=== PATIENT | male | born 2000 | race Caucasian/White ===

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

== ENCOUNTER 2020-07-23 12:30 | Emergency (ER) | payer SELFPAY ==
[2020-07-23 12:31] VITALS: BP 127/73; PULSE 71; RESP 16; TEMP 36.2; O2SAT 99; BMI 22.1
--- NOTE | 2020-07-23 13:44 | ED.DCSUM_ITS ---
History of Present Illness Chief Complaint: Laceration Informant: Patient Onset: Today, Hours Mechanism/Context: Blunt Injury Quality of Pain: Dull, Aching Location: Upper lip left side Current Severity: Mild Maximum Severity: Moderate Worsened by: Initial injury Relieved by: Nothing Associated Symptoms: Negative for: Parasthesias, Weakness, Loss of consciousness, Amnesia Narrative: Patient is a 19-year-old male who sustained blunt trauma to his face. He has a laceration to the upper lip on the left side that goes to the vermilion border. He states his upper tooth is pushed back. He is pointing to tooth #10. He states his teeth do not feel malaligned. He denies any dental pain. He did not notice any of his teeth being chipped tetanus is up-to-date. He denies ocular, visual auditory symptoms. He denies neck pain. Tetanus Immunization: <5 years Prior similar symptoms: No Recent Illness/Hospitalization: No - Past Medical History (1) No significant past medical history Status: Acute Past Medical History - Allergies and Home Meds Allergies/Adverse Reactions: Allergies amoxicillin Allergy (Verified 07/23/20 12:32) Unknown Primary Care Physician: Care Physician,No Primary [Primary Care Provider] - Prior records reviewed: Yes Surgical History: - - Implantation of amputated finger Lives: Alone Smoking Status: Current every day smoker Alcohol: Rare Drugs: None Review of Systems Gastrointestinal: Denies: Nausea, Vomiting Skin: Reports: Wounds. Denies: Rash Neurological: Denies: Weakness, Parasthesia, Numbness Hematologic: Denies: Easy bruising, Easy bleeding Physical Exam Vital Signs/Narrative: Vital Signs Temp Pulse Resp BP Pulse Ox 07/23/20 12:31 97.2 F L 71 16 127/73 H 99 Inital Vital Signs reviewed: Yes General: Well nourished, Well developed Head: Normocephalic, Trauma - Duration upper lip through the million border with injury to tooth #10 Eyes: Perrl, EOMI. Negative for: Pale conjunctiva ENT: TM's clear, No hemotympanum or drainage, - - Tooth #10 is loose. Patient was informed to follow-up with dentist for x-ray to evaluate for root fracture.. Negative for: No trauma, Hemotympanum, Otorrhea, Nasal trauma, Nasal septal hematoma Neck: Nontender, Full ROM. Negative for: Spinal Tenderness, Paraspinal Tenderness Cardiovascular: Negative for: Regular rate, Regular rhythm, No murmurs, Normal S1 Respiratory: Negative for: No distress Skin: Normal color, No rash, Trauma Neurological: Alert, Oriented x3, Cranial nerves II-XII grossly intact, Normal Strength, Normal Sensation Procedures - Lacerations No standard instances Length: 0.51 in Depth: Vermilion border and vermilion upper lip Shape: Linear Prep: Sterile Conditions Laceration Repair: - - Infraorbital nerve block intraoral approach Irrigated (ml): 25 Number of Sutures/[place]: 5 Suture Information: Ethilon, Simple, 6-0 ED Disposition - Plan for ED Patient: Disposition: Home or Assisted Living Diagnosis: Laceration of vermilion border of upper lip, Dental trauma Instructions: ED Laceration, Face: Stitches or Tape, ED Dental Trauma Referrals: Care Physician,No Primary [Primary Care Provider] - Corrie Murcia [NON-STAFF] - 5 Days for suture removal Additional Instructions: [facility] to have x-ray to rule out a rib fracture involving tooth #10.
[2020-07-23] MEDS: Lidocaine 1% (20 ml mdv) 20 ML Vial INFILT (13:49)
[2020-07-23 14:33] VITALS: RESP 16; RESP 17
== END 2020-07-23 14:34 | disposition home or self-care (01) ==
PROVIDERS: Emergency Provider Emergency Medicine
DX: S01.511A Laceration without foreign body of lip, initial encounter (principal); F17.200 Nicotine dependence, unspecified, uncomplicated; X58.XXXA Exposure to other specified factors, initial encounter
CPT/HCPCS: 12011; 99283

== ENCOUNTER 2021-07-26 21:59 | Emergency (ER) | payer SELFPAY ==
[2021-07-26 22:00] VITALS: BP 143/73; PULSE 92; RESP 18; TEMP 37.3; O2SAT 98; BMI 22.3
[2021-07-26 22:09] VITALS: BP 143/73; PULSE 92; RESP 18; TEMP 37.3; O2SAT 98
--- NOTE | 2021-07-26 22:12 | ED.RN ---
PT states he hasn't used marijuana in a while, at least 4 hrs.
--- NOTE | 2021-07-26 22:23 | EKG12_ITS ---
Test Reason : DYSRYTHMIA Blood Pressure : / mmHG Vent. Rate : 080 BPM Atrial Rate : 080 BPM P-R Int : 134 ms QRS Dur : 090 ms QT Int : 350 ms P-R-T Axes : 026 047 061 degrees QTc Int : 403 ms Normal sinus rhythm Nonspecific T wave abnormality Abnormal ECG Confirmed by MINH CHAO, SHAUNA ([id number]), sports editor RELL RAYMOND ([id number]) on 07/27/2021 11:34:59 AM Referred By: DOC Confirmed By:SHAUNA WILKINSON MD
--- NOTE | 2021-07-26 22:23 | EX.ED.DYSGE1 ---
HPI History of Present Illness Chief Complaint: Asthma Informant: patient and spouse/S.O. Narrative Narrative: Patient presents with episodes of dyspnea and chest tightness. He states between these episodes he feels fine. He has been going on for couple weeks. Nothing specifically brings them on or gets them better. He states he gets very anxious and feels like he has a panic attack with these. He does have a history of anxiety but is not on medication until he saw urgent care just a few days ago for this. He was then started on hydroxyzine. He was also given an albuterol inhaler because he was out and does have a history of asthma. However, he is not having wheezing or coughing. Patient does report having an accident to electric shock while working on a washer and dryer about a month ago. However, the symptoms started maybe 2 weeks later. At this time he feels fine. He had 1 of these episodes tonight and felt very panicked. His girlfriend called to bring him in. [facility] Medical History Amputation finger-complicated Anxiety Asthma Electrocution Marijuana smoker Home Medications albuterol sulfate 1 INHALATION Q4H PRN PRN 07/26/21 [History Last Taken Unknown] albuterol sulfate 2 puff INHALATION Q4H PRN PRN 07/26/21 [History Last Taken Unknown] hydroxyzine HCl 25 - 50 mg PO Q6H PRN PRN 07/26/21 [History Last Taken Unknown] Allergy/AdvReac Type Severity Reaction Status Date / Time amoxicillin Allergy Unknown Verified 07/23/20 12:32 Surgical History History of appendectomy Social History Smoking Status: Current every day smoker tobacco type: cigarettes ROS ROS ED Constitutional Constitutional ED: Denies chills or fever(s) Eyes Eyes: Denies blurry vision ENT ENT ED: Denies rhinorrhea Cardiovascular Cardiovascular: Reports chest pain, palpitations and racing heartbeat Respiratory/Chest Respiratory/Chest: Reports dyspnea; Denies cough or sputum Gastrointestinal Gastrointestinal: Denies nausea or vomiting Musculoskeletal Musculoskeletal: Denies myalgias Integumentary Denies rash Neurologic Neurologic: Denies headache(s), paresthesias or weakness Psychiatric Psychiatric: Reports anxiety; Denies depression Endocrine Endocrinology: Denies polydipsia or polyuria Allergic/Immunologic Allergic/Immunologic ED: Denies mouth swelling or urticaria EXAM Physical Exam Const Vital Signs: 07/26/21 22:00 07/26/21 22:09 07/26/21 23:17 Temperature 99.2 F H 99.2 F H 99.2 F H Temperature Source Temporal Temporal Temporal Pulse Rate 92 92 92 Respiratory Rate 18 18 18 Respiratory Effort Normal Blood Pressure 143/73 H 143/73 H 143/73 H Blood Pressure Mean 96 96 96 Pulse Ox 98 98 98 Oxygen Delivery Method Room Air Room Air Room Air Positive well nourished and well developed General Appearance ED: well developed and NAD; Negative for cyanotic or diaphoretic HEENT Reports dry mucous membranes Mouth ED: Yes dry mucous membranes Mouth: dry mucous membranes Eyes PERRL and EOMs intact bilaterally Neck no JVD Chest Wall inspection of chest normal and palpation of chest normal Resp normal respiratory effort and clear to auscultation bilaterally Effort and Inspection: Negative for pain with movement Auscultation: Negative for rales, rhonchi or wheezes Cardio regular rate and regular rhythm Rate: other Other Details: Monitor does show a prominent sinus arrhythmia. However, there is no other ectopy or abnormality seen on the monitor. GI normal to inspection, nondistended, normoactive bowel sounds and non-tender Palpation: soft Back/Spine no CVA tenderness Extremity normal to inspection General Extremety ED: Negative for edema or tenderness General Extremity: Negative for edema Neuro oriented x3 Sensorium / Orientation: alert Psych mental status grossly normal Attitude: No agitated Mood & Affect: Negative for anxious Skin no rashes or lesions noted MDM MDM MDM Narrative Medical decision making narrative: 2 view chest x-ray looked at by me shows no sign of pneumothorax, abnormal cardiac silhouette, infiltrate. EKG shows no acute process. Patient's recheck. He still asymptomatic. More information was brought out. Evidently does smoke a fair amount of marijuana. He has more of these episodes after smoking than before. I explained that he may have something put in that that he is not familiar with that is exacerbating his anxiety. Also, when he gets anxious he has been using his albuterol inhaler a lot. That is why he ran out. I explained that albuterol is very good for bronchospasm but it can induce worsening anxiety in people. We discussed options for controlling this. He has follow-up appointments with physician already. They are not sure the exact name but it is the appointments are in early August. I think he is safe for discharge at this time. EKG Initial EKG: Comments: EKG done for transient chest tightness and occasional dyspnea. EKG shows sinus rhythm with slight sinus arrhythmia. Nonspecific ST-T wave changes but no sign of ST elevation or depression. No ectopy. NC interval, QRS duration and QTc are normal. Discharge Plan Triage Chief Complaint: Asthma ED Provider: Teo Martinez Dx/Rx/DC Orders Clinical Impression: Chest tightness, Panic attacks Instructions: ED Pain, Acute, Uncertain Cause, ED Panic Attack Prescriptions: No Action albuterol sulfate 2.5 mg /3 mL (0.083 %) solution for nebulization 1 inhalation Q4H PRN PRN (Reason: Wheezing) RF: 0 hydroxyzine HCl 25 mg tablet 25 - 50 mg PO Q6H PRN PRN (Reason: Anxiety) RF: 0 albuterol sulfate 90 mcg/actuation HFA aerosol inhaler 2 puff INHALATION Q4H PRN PRN (Reason: Wheezing) RF: 0 Primary Care Provider: Care Physician,No Primary Referrals: Care Physician,No Primary [Primary Care Provider] - Activity Restrictions/Additional Instructions: Follow-up with your scheduled appointments. Disposition Disposition: Home, Self Care
--- NOTE | 2021-07-26 22:32 | RAD_ITS ---
INDICATION: SOB EXAMINATION/TECHNIQUE: X-RAY - XR Chest 2 Views COMPARISON: 10/04/2019 chest x-ray FINDINGS: LINES/DEVICES: None. LUNGS: Symmetric normal lung volumes. No airspace opacity or abnormal interstitial pattern. No nodule or mass. No pleural effusion or pneumothorax. MEDIASTINUM AND CARDIOVASCULAR STRUCTURES: Normal size and contour of the cardiomediastinal silhouette. No evidence of pulmonary vascular congestion. BONES AND SOFT TISSUES: No abnormality within limits of the exam. RAD/Chest PA and Lateral IMPRESSION: 1. No radiographic evidence of acute cardiopulmonary disease. Electronically Signed: Roberto Alvarez DO at 23:34 EST Tel , Service support ,
[2021-07-26 23:17] VITALS: BP 143/73; PULSE 92; RESP 18; TEMP 37.3; O2SAT 98
== END 2021-07-26 23:39 | disposition home or self-care (01) ==
PROVIDERS: Emergency Provider Emergency Medicine
DX: R07.89 Other chest pain (principal); F41.0 Panic disorder [episodic paroxysmal anxiety]; J45.909 Unspecified asthma, uncomplicated; F17.210 Nicotine dependence, cigarettes, uncomplicated
CPT/HCPCS: 71046; 93005; 99284

== ENCOUNTER → 2021-08-03 15:00 | Outpatient (CLI) | payer SELFPAY ==
[2021-08-03 15:25] LABS: D-Dimer Quantitative (DVT/PE) <= 0.27 FEU/ug/m (0.27-0.49)
== END ==
LOC: LABSPEC 15:02
PROVIDERS: Visit Provider Nurse Practitioner
DX: R07.9 Chest pain, unspecified (principal); R06.02 Shortness of breath
CPT/HCPCS: 85379

== ENCOUNTER 2022-02-27 02:50 | Emergency (ER) | payer SELFPAY ==
[2022-02-27 02:52] VITALS: BP 120/80; PULSE 55; RESP 15; TEMP 36.8; O2SAT 100; BMI 22.0
--- NOTE | 2022-02-27 03:32 | EKG12_ITS ---
Test Reason : CP Blood Pressure : / mmHG Vent. Rate : 055 BPM Atrial Rate : 055 BPM P-R Int : 154 ms QRS Dur : 094 ms QT Int : 390 ms P-R-T Axes : 038 060 070 degrees QTc Int : 373 ms Sinus bradycardia with sinus arrhythmia Otherwise normal ECG Confirmed by MINH CHAO, SHAUNA ([id number]), publications editor RELL RAYMOND ([id number]) on 03/02/2022 9:24:22 AM Referred By: SARAH Confirmed By:SHAUNA WILKINSON MD
[2022-02-27 03:39] VITALS: O2SAT 99
--- NOTE | 2022-02-27 03:40 | RAD_ITS ---
EXAM: XR CHEST, 1 VIEW CLINICAL INDICATION: chest pain TECHNIQUE: Frontal view of the chest. This report was created using Share[employer] report generation technology. COMPARISON: July 26, 2021, October 04, 2019 FINDINGS: LUNGS AND PLEURAL SPACES: Unremarkable. No consolidation or edema. No pneumothorax. No effusion. HEART: Unremarkable. Cardiac silhouette not enlarged. MEDIASTINUM: Central airways and mediastinal contour are unremarkable. BONES/JOINTS: Unremarkable. SOFT TISSUES: Unremarkable. RAD/Chest 1 View (Portable) IMPRESSION: No radiographic evidence of acute cardiopulmonary disease. Electronically Signed: Gena Lawson MD at 3:59 EDT ,
[2022-02-27 03:41] LABS: Absolute Lymphocyte Count 2.98 X10^3/uL (0.83-4.51); Absolute Neutrophil Count 4.2 X10^3/uL (2.0-7.7); Basophil# 0.03 X10^3/uL; Basophil% 0.4 % (0-1); Eosinophil# 0.23 X10^3/uL; Eosinophils% 2.8 % (0-5); Hematocrit 43.4 % (40-54); Hemoglobin 14.8 g/dL (13.0-16.5); Lymphocyte # 2.98 X10^3/ul (0.83-4.51); Lymphocyte % 36.3 % (19-41); Mean Corp Hgb Conc 34.1 g/dL (32-36); Mean Corpuscular Hgb 29.3 pg (27.0-32.0); Mean Corpuscular Volume 85.9 fL (80-94); Mean Platelet Vol. 9.4 fl (6.2-12.0); Monocyte# 0.72 X10^3/uL; Monocyte% 8.8 % (0-10); NRBC Flagged by Analyzer 0 % (0-5); Neutrophil # 4.23 X10^3/uL (2.7-7.7); Neutrophil % 51.5 % (47-70); Platelet Count 233 K/mm3 (150-450); RBC Distribution Width CV 11.9 % (11.6-14.6); RBC Distribution Width SD 37.3 fl (35.1-43.9); Red Blood Count 5.05 M/mm3 (4.6-6.2); White Blood Count 8.2 K/mm3 (4.4-11.0)
[2022-02-27 04:12] LABS: Anion Gap 6 (5-15); BUN 25 mg/dL (7-18); Calcium,Total 8.9 mg/dL (8.5-10.1); Chloride 106 mmol/L (98-107); Creatinine, Serum 0.96 mg/dL (0.70-1.30); EST Glomerular Filtration Rate 104 mL/min (>60); Est Glom Filt Rate - Afr Amer 126 mL/min (>60); Estimated Creatinine Clearance 137.83 ml/min; Glucose 97 mg/dL (74-106); Potassium 3.7 mmol/L (3.5-5.1); Sodium Level 139 mmol/L (136-145); Troponin-I HS 3 pg/mL (3.0-78.0)
--- NOTE | 2022-02-27 04:58 | EDS_ITS ---
HPI History of Present Illness Chief Complaint: Chest Pain Narrative Narrative: Patient is a 21-year-old male who states that he has been having midsternal chest discomfort. He denies any trauma or excessive activity prior to the pain beginning. He denies any history of cardiac disease at a young age and he denies any recent travel or surgery or history of DVT/PE. He also denies any illicit drug use. Patient states that he has had this chest pain in the past and that he has been told it secondary to anxiety. However this evening with symptoms not being controlled with [id number] medication he presents for evaluation [facility] Medical History Amputation finger-complicated Anxiety Asthma Electrocution Marijuana smoker Home Medications albuterol sulfate 2.5 mg/3 mL (0.083 %) solution for nebulization 2.5 mg inhalation Q4H PRN PRN Wheezing 07/26/21 [History Last Taken Unknown] albuterol sulfate 90 mcg/actuation aerosol inhaler 2 puff inhalation Q4H PRN PRN Wheezing 07/26/21 [History Last Taken Unknown] hydroxyzine HCl 25 mg tablet 25 - 50 mg PO Q6H PRN PRN Anxiety 07/26/21 [History Last Taken Unknown] methocarbamol 500 mg tablet 1,000 mg PO 4X/DAY PRN PRN Muscle pain/spasm #56 tabs 02/27/22 [Rx Last Taken Unknown] Allergy/AdvReac Type Severity Reaction Status Date / Time amoxicillin Allergy Unknown Verified 02/27/22 02:51 Surgical History History of appendectomy Social History Smoking Status: Current every day smoker tobacco type: cigarettes ROS ROS ED Constitutional Constitutional ED: Denies chills or fever(s) ENT ENT ED: Denies sore throat Cardiovascular Cardiovascular: Reports chest pain; Denies palpitations or racing heartbeat Respiratory/Chest Respiratory/Chest: Denies cough or dyspnea Gastrointestinal Gastrointestinal: Denies abdominal pain, diarrhea, nausea or vomiting Genitourinary Genitourinary ED: Denies dysuria Musculoskeletal Musculoskeletal: Denies myalgias Integumentary Denies rash Neurologic Neurologic: Denies headache(s) Hematologic/Lymphatic Hematologic/Lymphatic: Denies easy bleeding or easy bruising EXAM Physical Exam Const Vital Signs: 02/27/22 02:52 02/27/22 02:54 02/27/22 03:39 Temperature 98.2 F Temperature Source Temporal Pulse Rate 55 L Respiratory Rate 15 Respiratory Effort Normal Non-Labored Blood Pressure 120/80 Blood Pressure Mean 93 Pulse Ox 100 99 Oxygen Delivery Method Room Air Room Air Positive well nourished and well developed General Appearance ED: well developed Eyes PERRL and EOMs intact bilaterally Neck supple Chest Wall Chest Narrative: There is reproducible chest wall pain with palpation of the anterior chest along the sternum rib regions 4-6 without bony deformity or crepitance. This is the same pain patient states he has been experiencing Resp normal respiratory effort and clear to auscultation bilaterally Cardio regular rate and regular rhythm Rate: other Other Details: Radial pulses are plus 2 out of 4 bilaterally are equal and symmetric GI normal to inspection, nondistended, normoactive bowel sounds, non-tender and non-distended Auscultation: normoactive bowel sounds Palpation: soft Back/Spine no CVA tenderness Extremity normal to inspection Extremity Narrative: No asymmetric edema no pitting edema negative Homans' sign bilaterally Neuro oriented x3 and CN's II-XII intact bilaterally Sensorium / Orientation: alert Psych mental status grossly normal Skin no rashes or lesions noted MDM MDM MDM Narrative Medical decision making narrative: Patient presented to the ER with stable vitals and is low risk for DVT/PE as well as cardiovascular disease. With his concern however a basic cardiac work- up was obtained. Lab work and imaging studies revealed no clinically significant findings. The fact that he does have reproducible pain with palpation indicates that the pain is musculoskeletal in nature especially as he is low risk for CAD. Therefore this time I do not feel there is need for further work-up and patient can be placed on symptomatic medications and otherwise discharged Lab Data Attestation: I reviewed the patient's lab results. Labs: Laboratory Results - last 24 hr 02/27/22 02/27/22 03:37 03:37 WBC 8.2 RBC 5.05 Hgb 14.8 Hct 43.4 MCV 85.9 MCH 29.3 MCHC 34.1 RDW Std Deviation 37.3 RDW Coeff of Panda 11.9 Plt Count 233 MPV 9.4 Immature Gran % (Auto) 0.200 Neut % (Auto) 51.5 Lymph % (Auto) 36.3 [place] % (Auto) 8.8 Eos % (Auto) 2.8 Baso % (Auto) 0.4 Absolute Neuts (auto) 4.2 Absolute Lymphs (auto) 2.98 Nucleated RBC % 0 Sodium 139 Potassium 3.7 Chloride 106 Carbon Dioxide 27.0 Anion Gap 6 BUN 25 H Creatinine 0.96 Estim Creat Clear Calc 137.83 Est GFR (MDRD) Af Amer 126 Est GFR (MDRD) Non-Af 104 BUN/Creatinine Ratio 26.0 H Glucose 97 Calcium 8.9 Troponin I High Sens 3 Radiography Diagnostic Testing: Clinical Impression(s) from Imaging Studies Chest X-Ray 02/27/22 03:40 IMPRESSION: No radiographic evidence of acute cardiopulmonary disease. Electronically Signed: Gena Lawson MD at 3:59 EDT Reading Location ID and State: [facility] / [place] Tel , Service support , Chest x-ray as interpreted by the emergency medicine physician reveals no acute infiltrate pneumothorax or pleural effusion Discharge Plan Triage Chief Complaint: Chest Pain ED Provider: Peter Patel Dx/Rx/DC Orders Clinical Impression: Chest wall pain, Anxiety Instructions: ED Chest Pain, Noncardiac Prescriptions: New methocarbamol 500 mg tablet 1,000 mg PO 4X/DAY PRN PRN (Reason: Muscle pain/spasm) Qty: 56 0RF No Action albuterol sulfate 2.5 mg /3 mL (0.083 %) solution for nebulization 2.5 mg inhalation Q4H PRN PRN (Reason: Wheezing) hydroxyzine HCl 25 mg tablet 25 - 50 mg PO Q6H PRN PRN (Reason: Anxiety) albuterol sulfate 90 mcg/actuation HFA aerosol inhaler 2 puff INHALATION Q4H PRN PRN (Reason: Wheezing) Primary Care Provider: Care Physician,No Primary Referrals: Dorina Hurley MD [Med Staff - [employer]] - 1 Week if not improving Care Physician,No Primary [Primary Care Provider] - Disposition Disposition: Home, Self Care Discharge Date/Time: 02/27/22 05:04
[2022-02-27 05:04] VITALS: BP 128/74; PULSE 63; RESP 16; O2SAT 98
== END 2022-02-27 05:04 | disposition home or self-care (01) ==
PROVIDERS: Emergency Provider Emergency Medicine; Visit Provider Emergency Medicine
DX: R07.89 Other chest pain (principal); F41.9 Anxiety disorder, unspecified; F17.210 Nicotine dependence, cigarettes, uncomplicated
CPT/HCPCS: 71045; 80048; 84484; 85025; 93005; 99284; A4216

== ENCOUNTER 2022-03-11 16:29 | Emergency (ER) | payer OTHER, SELFPAY ==
[2022-03-11 16:29] VITALS: PULSE 110; RESP 19; TEMP 36.4; O2SAT 99; BMI 24.3
[2022-03-11 16:32] VITALS: BP 134/84
--- NOTE | 2022-03-11 16:40 | RAD_ITS ---
STUDY: X-RAY - RIGHT HAND REASON FOR EXAM: Male, 21 years old. Trauma TECHNIQUE: 3 view(s) of the hand. COMPARISON: 03/07/2018 FINDINGS: Normal radiocarpal articulation. Normal distal radioulnar joint. Normal visualized carpal bones. Normal carpal articulations Normal carpometacarpal articulation of the thumb. Normal second through fifth carpometacarpal joints. Normal metacarpi. Normal metacarpophalangeal joint of the thumb. Normal interphalangeal joint of the thumb. Normal proximal and distal phalanges of the thumb. Normal metacarpophalangeal joints of the second through fifth fingers. Normal proximal and distal interphalangeal joints of the second through fifth fingers. There is amputation of the distal aspect of the third distal phalanx. There is a deformity of the top of the fourth distal phalanx that appears chronic. The soft tissue structures are unremarkable. RAD/Hand Min 3 Views IMPRESSION: Fourth distal phalanx deformity consistent with an old injury. Amputation of the tuft of the third middle phalanx of uncertain chronicity, possibly secondary to remote injury. Electronically Signed: Moon Avila MD at 16:58 EDT ,
--- NOTE | 2022-03-11 16:41 | EX.ED.UPPERE ---
HPI History of Present Illness Chief Complaint: Upper Extremity Injury Informant: patient Narrative Narrative: 21-year-old male states he got his right hand smashed by a tailgate at work. He notes cuts in the skin. He is right-handed. States his last tetanus was when his fingers got cut off but he cannot recall when that was but states it is has at least been a few years. Tetanus Immunization: <5 years [facility] Medical History Amputation finger-complicated Anxiety Asthma Electrocution Marijuana smoker Home Medications albuterol sulfate 2.5 mg/3 mL (0.083 %) solution for nebulization 2.5 mg inhalation Q4H PRN PRN Wheezing 07/26/21 [History Last Taken Unknown] albuterol sulfate 90 mcg/actuation aerosol inhaler 2 puff inhalation Q4H PRN PRN Wheezing 07/26/21 [History Last Taken Unknown] Allergy/AdvReac Type Severity Reaction Status Date / Time amoxicillin Allergy Unknown Verified 03/11/22 16:31 Surgical History History of appendectomy Social History (Updated 03/11/22 @ 16:[address] Vignesh Treviño DO) Smoking Status: Current every day smoker tobacco type: cigarettes substance use type: does not use ROS ROS ED Constitutional Constitutional ED: Denies chills or weight loss Eyes Eyes: Denies change in vision or diplopia ENT ENT ED: Denies ear pain, rhinorrhea or sore throat Cardiovascular Cardiovascular: Denies chest pain, orthopnea, palpitations or racing heartbeat Respiratory/Chest Respiratory/Chest: Denies cough, dyspnea or orthopnea Gastrointestinal Gastrointestinal: Denies abdominal pain, diarrhea, nausea or vomiting Genitourinary Genitourinary ED: Denies dysuria, hematuria or urinary frequency Musculoskeletal Musculoskeletal: Reports other Details: Right hand pain ; Denies arthralgias or myalgias Integumentary Reports other Details: Skin tears and abrasions right hand ; Denies abscess or rash Neurologic Neurologic: Denies headache(s) or weakness Psychiatric Psychiatric: Denies anxiety, depression, suicidal ideation or suicidal thoughts Endocrine Endocrinology: Denies polydipsia, polyphagia or polyuria Allergic/Immunologic Allergic/Immunologic ED: Denies mouth swelling, tongue swelling or urticaria EXAM Physical Exam Const Vital Signs: 03/11/22 16:29 03/11/22 16:32 Temperature 97.6 F L Temperature Source Temporal Pulse Rate 110 H Respiratory Rate 19 H Blood Pressure 134/84 H Blood Pressure Mean 100 Pulse Ox 99 Oxygen Delivery Method Room Air Positive well nourished and well developed General Appearance ED: well developed HEENT Reports normocephalic, head/scalp atraumatic and moist mucous membranes Eyes PERRL and EOMs intact bilaterally Neck full ROM, no lymphadenopathy, supple and no JVD Resp normal respiratory effort and clear to auscultation bilaterally Cardio regular rate, regular rhythm and no murmurs GI normal to inspection, nondistended, normoactive bowel sounds and non-tender Palpation: soft Back/Spine no CVA tenderness and normal ROM Extremity Extremity Narrative: There is superficial skin tears dorsum of the medial aspect of the right hand along the fifth metacarpal. There is a skin avulsion on the dorsum of the right long finger near the MCP joint. General Extremety ED: Negative for edema General Extremity: Negative for edema Neuro oriented x3 and CN's II-XII intact bilaterally Sensorium / Orientation: alert Motor Exam: strength 5/5 throughout Psych mental status grossly normal Mood & Affect: Negative for depressed or tearful Skin no rashes or lesions noted and no wounds MDM MDM MDM Narrative Medical decision making narrative: Patient cannot tolerate me using a wet 4 x 4 to clean the blood off of his hand so he takes it and does it for me and he is able to tolerate it. My interpretation of the plain films of the right hand is no acute fracture. Does not appear that the patient needs any suturing. Wounds will be cleansed and dressed. Follow-up as needed return if worsening or concerns Discharge Plan Triage Chief Complaint: Upper Extremity Injury ED Provider: Vignesh Treviño Dx/Rx/DC Orders Clinical Impression: Crush injury of hand, Skin tear of right upper extremity, Avulsion of skin of hand Instructions: ED Crush Injury, Hand Prescriptions: No Action albuterol sulfate 2.5 mg /3 mL (0.083 %) solution for nebulization 2.5 mg inhalation Q4H PRN PRN (Reason: Wheezing) albuterol sulfate 90 mcg/actuation HFA aerosol inhaler 2 puff INHALATION Q4H PRN PRN (Reason: Wheezing) Primary Care Provider: Care Physician,No Primary Referrals: Orlando Mendoza MD [Med Staff - Active Staff] - As Needed Care Physician,No Primary [Primary Care Provider] - Disposition Disposition: Home, Self Care
[2022-03-11] MEDS: Ibuprofen 400 MG Tablet 800 MG PO (17:04)
== END 2022-03-11 17:15 | disposition home or self-care (01) ==
LOC: ED 17:04
PROVIDERS: Emergency Provider Emergency Medicine; Visit Provider Emergency Medicine
DX: S67.21XA Crushing injury of right hand, initial encounter (principal); S61.411A Laceration without foreign body of right hand, initial encounter; F17.210 Nicotine dependence, cigarettes, uncomplicated; W23.0XXA Caught, crushed, jammed, or pinched between moving objects, initial encounter
CPT/HCPCS: 73130; 99283

== ENCOUNTER 2022-03-20 14:57 | Emergency (ER) | payer SELFPAY ==
[2022-03-20 14:58] VITALS: BP 120/85; PULSE 68; RESP 11; TEMP 37.4; O2SAT 97; BMI 24.2
[2022-03-20 15:04] VITALS: O2SAT 97
--- NOTE | 2022-03-20 15:12 | CT_ITS ---
STUDY: CT CERVICAL SPINE WITHOUT CONTRAST REASON FOR EXAM: Male, 21 years old. trauma RADIATION DOSAGE (If Supplied By Facility): CTDIvol = ( 23.71 ) mGy, DLP = ( 540.43 ) mGycm TECHNIQUE: High resolution transaxial imaging was performed without contrast material. Sagittal and coronal images were reconstructed. Individualized dose optimization techniques were used for this CT. COMPARISON: None FINDINGS: Normal craniovertebral junction. Normal anterior atlantoaxial articulation. Normal odontoid process. Normal cervical lordosis. Normal vertebral bodies and posterior osseous elements. C2-3: Normal endplates. Normal disc height and morphology. Normal central canal and intervertebral neuroforamina. C3-4: Normal endplates. Normal disc height and morphology. Normal central canal and intervertebral neuroforamina. C4-5: Normal endplates. Normal disc height and morphology. Normal central canal and intervertebral neuroforamina. C5-6: Normal endplates. Normal disc height and morphology. Normal central canal and intervertebral neuroforamina. C6-7: Normal endplates. Normal disc height and morphology. Normal central canal and intervertebral neuroforamina. C7-T1: Normal endplates. Normal disc height and morphology. Normal central canal and intervertebral neuroforamina. Normal visualized soft tissue structures. CT/Spine Cervical without Contras IMPRESSION: Normal unenhanced CT examination of the cervical spine. Electronically Signed: Ty Cao MD at 17:05 EDT ,
--- NOTE | 2022-03-20 15:12 | CT_ITS ---
STUDY: CT CHEST, ABDOMEN T PELVIS WITH CONTRAST REASON FOR EXAM: Male, 21 years old. trauma RADIATION DOSAGE (If Supplied By Facility): CTDIvol = ( 22.39 ) mGy, DLP = ( 2030.07 ) mGycm TECHNIQUE: Transaxial imaging was performed following intravenous administration of 100 ML ISOVUE 370. Individualized dose optimization techniques were used for this CT. COMPARISON: No relevant priors. FINDINGS: CHEST The lungs are normal. There is no demonstrated pleural abnormality. Normal heart and pericardium. Normal mediastinum. Normal hilar regions. Normal unenhanced pulmonary arteries. Normal aorta arch and descending thoracic aorta. Normal osseous structures. There is no demonstrated abnormality of the visualized upper abdomen. ABDOMEN The visualized lung bases are unremarkable. The visualized portions of the heart are within normal limits. Normal liver. Normal gallbladder and extrahepatic biliary system. Normal spleen. Normal pancreas. Normal bilateral adrenal glands. Normal right kidney. Normal left kidney. Normal visualized stomach. Air-fluid levels are noted in the central small bowel. Increased stool throughout the colon. The appendix is not identified. Normal abdominal aorta. Normal inferior vena cava. Normal retroperitoneum. Normal abdominal wall. Normal osseous structures. PELVIS Normal urinary bladder. 2.6 cm right adnexal cyst. Normal visualized small intestine. Normal visualized colon. There is no pelvic fluid. There is no pelvic lymphadenopathy or mass lesion. Normal visualized pelvic arteries. Normal abdominal wall. Normal osseous structures. CT/CT Chest, Abd, Pel w/Contrast IMPRESSION: Ileus. No acute disease. Electronically Signed: Ty Cao MD at 17:34 EDT ,
--- NOTE | 2022-03-20 15:12 | CT_ITS ---
STUDY: CT BRAIN WITHOUT CONTRAST REASON FOR EXAM: Male, 21 years old. trauma RADIATION DOSAGE (If Supplied By Facility): CTDIvol = ( 44.99 ) mGy, DLP = ( 779.24 ) mGycm TECHNIQUE: Transaxial CT imaging of the brain was performed without administration of intravenous contrast material. Individualized dose optimization techniques were used for this CT. COMPARISON: No relevant priors. FINDINGS: Normal soft tissue structures. Normal calvarium. Normal size ventricles and extra-axial spaces for the patient''s age. Normal white matter tracts of the cerebral hemispheres. Normal basal ganglia and thalami. Normal brainstem. Normal cerebellum. There is no intracranial hemorrhage. There are no findings of an acute ischemic infarction. Normal visualized paranasal sinuses. CT/Brain/Head without Contrast IMPRESSION: Normal unenhanced CT scan of the brain. Electronically Signed: Ty Cao MD at 17:04 EDT ,
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
[2022-03-20] MEDS: Ondansetron 4 MG/2 ML Vial IV (15:19)
[2022-03-20] MEDS: HYDROmorphone 1 MG/ML Syringe IV ×2 (15:19→16:43)
[2022-03-20 15:26] LABS: Absolute Lymphocyte Count 1.76 X10^3/uL (0.83-4.51); Absolute Neutrophil Count 3.5 X10^3/uL (2.0-7.7); Basophil# 0.04 X10^3/uL; Basophil% 0.7 % (0-1); Eosinophil# 0.18 X10^3/uL; Hematocrit 43.2 % (40-54); Hemoglobin 14.6 g/dL (13.0-16.5); Lymphocyte # 1.76 X10^3/ul (0.83-4.51); Lymphocyte % 29.2 % (19-41); Mean Corp Hgb Conc 33.8 g/dL (32-36); Mean Corpuscular Hgb 29.1 pg (27.0-32.0); Mean Corpuscular Volume 86.1 fL (80-94); Mean Platelet Vol. 9.3 fl (6.2-12.0); Monocyte# 0.51 X10^3/uL; Monocyte% 8.5 % (0-10); NRBC Flagged by Analyzer 0 % (0-5); Neutrophil # 3.52 X10^3/uL (2.7-7.7); Neutrophil % 58.4 % (47-70); Platelet Count 235 K/mm3 (150-450); RBC Distribution Width CV 11.9 % (11.6-14.6); RBC Distribution Width SD 37.7 fl (35.1-43.9); Red Blood Count 5.02 M/mm3 (4.6-6.2)
[2022-03-20 15:45] LABS: ALB/GLOB Ratio 1.1 RATIO (0.9-2.4); AST(SGOT) 20 U/L (15-37); Alanine Aminotransfer ALT/SGPT 26 U/L (16-61); Albumin, Serum 3.7 g/dL (3.2-5.0); Alkaline Phosphatase 61 U/L (45-117); Anion Gap 6 (5-15); BUN 12 mg/dL (7-18); BUN/Creat Ratio 11.3 RATIO (10-20); Calcium,Total 8.4 mg/dL (8.5-10.1); Chloride 107 mmol/L (98-107); Creatinine, Serum 1.06 mg/dL (0.70-1.30); EST Glomerular Filtration Rate 93 mL/min (>60); Est Glom Filt Rate - Afr Amer 113 mL/min (>60); Estimated Creatinine Clearance 131.75 ml/min; Globulin 3.3 g/dL (2.2-4.2); Glucose 97 mg/dL (74-106); Lipase 93 U/L (73-393); Potassium 3.7 mmol/L (3.5-5.1); Sodium Level 140 mmol/L (136-145)
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
[2022-03-20 15:53] LABS: Alcohol, Blood (Medical)-Serum < 3.0 mg/dL
[2022-03-20] MEDS: Lidocaine 1% (20 ml mdv) 20 ML Vial INFILT (16:10)
[2022-03-20 16:11] VITALS: BP 107/52; PULSE 62; RESP 14; O2SAT 96
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
[2022-03-20 17:19] VITALS: BP 128/79; PULSE 68; RESP 15; O2SAT 94
[2022-03-20 18:02] LABS: Bacteria 0 SEEN /hpf (None Seen); Mucous, Urine 0 SEEN /hpf (<or=2+); Red Blood Cells-Urine 0 SEEN /hpf (0-5); Squamous Epithelial Cells - UA 0 SEEN /hpf (0-5); White Blood Cells 0 SEEN /hpf (0-5)
[2022-03-20 18:03] LABS: Color, Urine Yellow (Yellow); Glucose, Dipstick Normal (Normal); Ketone-Dipstick Negative (Negative); Leukocyte Esterase-Dipstick Negative /ul (Negative); Nitrite-Dipstick Negative (Negative); Occult Blood-Urine Negative /ul (Negative); Protein-Dipstick Negative (Negative); Urine Bilirubin Dipstick Negative (Negative); Urine Clarity Clear (Clear); Urine Urobilinogen Normal (Normal)
[2022-03-20 18:06] VITALS: BP 114/72; PULSE 61; RESP 17; O2SAT 97
== END 2022-03-20 18:20 | disposition home or self-care (01) ==
PROVIDERS: Emergency Provider Emergency Medicine; Visit Provider Emergency Medicine
DX: S01.01XA Laceration without foreign body of scalp, initial encounter (principal); S32.313 Displaced avulsion fracture of unspecified ilium; S06.0X0A Concussion without loss of consciousness, initial encounter; M25.552 Pain in left hip; F17.210 Nicotine dependence, cigarettes, uncomplicated; V89.0XXA Person injured in unspecified motor-vehicle accident, nontraffic, initial encounter
CPT/HCPCS: 70450; 71260; 72125; 73502; 73700; 74177; 80053; 81001; 82077; 83690; 85025; 96374; 96375; 96376; 99285; A4216; J2405